=== PATIENT | female | born 1940 | race Caucasian/White ===

== ENCOUNTER 2018-04-26 18:49 | Observation (INO) | payer MEDICARE ==
[~2018-04-26] VITALS: Ht 154.9 cm; Wt 82.9 kg
[~2018-04-26 18:49] MED LIST: AMLO10TA7 PO; CIPR-245 PO; HYDR25TA PO; LISI40TA4 PO; METR500T PO
[2018-04-26 20:03] LABS: BASOPHILS % (AUTO) 0.2 % (0.0-5.0); EOSINOPHILS % (AUTO) 0.2 % (0.0-8.0); HEMATOCRIT 41.5 % (36-48); LYMPHOCYTES % (AUTO) 5.7 % (21.0-51.0); MEAN CORPUSCULAR HEMOGLOBIN 29.6 pg (27.0-33.0); MEAN CORPUSCULAR HGB CONC 33.5 g/dL (32.0-36.0); MEAN CORPUSCULAR VOLUME 88.3 fL (79-99); MONOCYTES % (AUTO) 6.5 % (3.0-13.0); NEUTROPHILS % (AUTO) 87.4 % (40.0-77.0); PLATELET COUNT (AUTO) 296 K/uL (130-400); RED CELL DISTRIBUTION WIDTH 13.6 % (11.0-15.5); WHITE BLOOD COUNT (AUTO) 12.3 K/uL (4.8-10.8)
[2018-04-26] MEDS ORDERED: HYDROMORPHONE 1 MG/1 ML AMP ONE (20:14)
[2018-04-26 20:18] LABS: POTASSIUM 4.2 mmol/L (3.5-5.1)
[2018-04-26] MEDS ORDERED: ONDANSETRON HCL 4 MG/2 ML VIAL ONE (20:22)
[2018-04-26 20:23] LABS: ALBUMIN 4.1 g/dL (3.5-5.0); BILIRUBIN,TOTAL 0.5 mg/dL (0.2-1.0); TOTAL PROTEIN, SERUM 8.2 g/dL (6.0-8.3)
[2018-04-26 20:39] LABS: CREATININE 1.3 mg/dL (0.5-1.5)
[2018-04-26] MEDS ORDERED: METRONIDAZOLE 250MG/50ML 50 ML IV SCH (21:30)
[2018-04-26] MEDS ORDERED: COMPOUND IV MISC 1 EACH IVSOLN MISC PRN (21:30)
[2018-04-26 21:40] VITALS: BP 142/66
[2018-04-26] MEDS ORDERED: GLUCAGON 1MG KIT 1 MG ML IM PRN (22:00)
[2018-04-26] MEDS: DEXTROSE 5 %-0.45 % NACL 1,000 ML IV SCH (22:00)
[2018-04-26] MEDS ORDERED: LEVOFLOXACIN 750 MG/D5W 150 ML 150 ML IV SCH (22:00)
[2018-04-26] MEDS ORDERED: HYDROMORPHONE 1 MG/1 ML AMP IVP SCH (22:00)
[2018-04-26] MEDS ORDERED: ONDANSETRON HCL 4 MG/2 ML VIAL IVP PRN (22:00)
[2018-04-26] MEDS ORDERED: DEXTROSE 50%-WATER 50 ML DISP.SYRIN IV PRN (22:00)
[2018-04-26] MEDS: METRONIDAZOLE 250MG/50ML 50 ML IV SCH (22:53)
--- NOTE | 2018-04-26 23:15 | NUR ---
NOTE ATTEMPTED TO INSERT NGT AFTER EXPLAINING PROCEDURE. PATIENT PULLED OUT TUBE HERSELF WHEN HALF WAY IN. SHE REFUSED ANY FURTHER ATTEMPTS.
[2018-04-26] MEDS ORDERED: HYDROMORPHONE 1 MG/1 ML AMP IVP PRN (23:30)
[2018-04-27] VITALS: BP 146/64
[2018-04-27] MEDS: INSULIN R NPO SSI SQ SCH ×3 (00:32→12:00)
[2018-04-27 04:00] VITALS: BP 136/58
[2018-04-27 04:38] LABS: HEMATOCRIT 36.3 % (36-48); MEAN CORPUSCULAR HEMOGLOBIN 29.9 pg (27.0-33.0); MEAN CORPUSCULAR HGB CONC 34.2 g/dL (32.0-36.0); MEAN CORPUSCULAR VOLUME 87.3 fL (79-99); PLATELET COUNT (AUTO) 239 K/uL (130-400); RED BLOOD CELL COUNT(AUTO) 4.16 MIL/uL (4.00-5.50); RED CELL DISTRIBUTION WIDTH 13.9 % (11.0-15.5); WHITE BLOOD COUNT (AUTO) 8.1 K/uL (4.8-10.8)
[2018-04-27 04:50] LABS: CREATININE 1.5 mg/dL (0.5-1.5); POTASSIUM 4.2 mmol/L (3.5-5.1)
[2018-04-27] MEDS: METRONIDAZOLE 250MG/50ML 50 ML IV SCH ×2 (04:55→12:56)
[2018-04-27] MEDS ORDERED: PIOG30TA70 PO (06:20)
[2018-04-27] MEDS ORDERED: GLIM4TAB3 PO (06:20)
[2018-04-27] MEDS ORDERED: ASPI-1181 PO (06:24)
[2018-04-27] MEDS ORDERED: SPIR50TA PO (06:24)
[2018-04-27] MEDS ORDERED: MULT-725 PO (06:26)
[2018-04-27] MEDS ORDERED: CALCIUM PO (06:26)
[2018-04-27] MEDS ORDERED: KRILL OIL PO (06:26)
[2018-04-27 08:00] VITALS: BP 132/56
[2018-04-27] MEDS ORDERED: FAMOTIDINE/PF 20 MG/2 ML VIAL IV SCH (09:00)
[2018-04-27] MEDS: DEXTROSE 5 %-0.45 % NACL 1,000 ML IV SCH (09:58)
[2018-04-27 12:00] VITALS: BP 141/68
--- NOTE | 2018-04-27 14:54 | NUR ---
CM PT IN OBS STATUS WITH ORDERS TO POSSIBLE DC THIS AFTERNOON. NO CONCERNS VOICED BY NURSING/PATIENT, NO TRIGGERS FOR CM, WILL DEFER IA. EXPECTED DC PLAN HOME
--- NOTE | 2018-04-27 15:36 | NUR ---
DISCHARGE PATIENT GIVEN DISCHARGE INSTRUCTIONS AND EDUCATION ON FOLLOW UP APPOINTMENTS. PATIENT VERBALIZED UNDERSTANDING OF ALL EDUCATION GIVEN VIA TEACH BACK. IV DISCONTINUED, CATHETER INTACT. ALL BELONGINGS TAKEN WITH. NO DISTRESS NOTED UPON DISCHARGE. PATIENT LEFT VIA WHEELCHAIR TO PRIVATE CAR, AND PCP AT SIDE.
== END 2018-04-27 15:15 | disposition home or self-care (01) ==
LOC: EDH 18:49 → EDHIP 19:50 → 3AH 21:12
PROVIDERS: ADMIT Internal Medicine; ATTEND Internal Medicine
DX: R10.13 Epigastric pain (principal); R11.2 Nausea with vomiting, unspecified; E11.9 Type 2 diabetes mellitus without complications; I10 Essential (primary) hypertension; E78.5 Hyperlipidemia, unspecified; K66.0 Peritoneal adhesions (postprocedural) (postinfection); G89.29 Other chronic pain; M54.5 Low back pain; Z90.710 Acquired absence of both cervix and uterus
CPT/HCPCS: 36415 ×2; 74176; 80048; 80053; 82948 ×3; 83690; 85025; 85027; 96361; 96365; 96366; 96367; 96372; 96375; 99284; G0378 ×19; J1170 ×2; J1815; J1956; J2405 ×2; J3490 ×3; J7042

== ENCOUNTER → 2019-01-31 | Outpatient (CLI) | payer MEDICARE ==
[~2019-01-31] MED LIST changes: +ASPI-1181 PO; +CALCIUM PO; -CIPR-245 PO; +GLIM4TAB5 PO; +KRILL OIL PO; -METR500T PO; +MULT-725 PO; +PIOG30TA70 PO; +SPIR50TA PO
== END | disposition home or self-care (01) ==
LOC: RAH 11:29
PROVIDERS: ATTEND Internal Medicine
DX: N28.1 Cyst of kidney, acquired (principal)
CPT/HCPCS: 76770